=== PATIENT | female | born 1995 | race Caucasian/White ===

== ENCOUNTER → 2017-01-11 | Outpatient (CLI) | payer BC ==
[~2017-01-11] MED LIST: GADOBUTROL 10 MMOL/10 ML (GADAVIST) VIAL IV ONE
--- OUTSIDE RECORDS SUMMARY | 2017-01-11 13:56 | XMS REPORT | Continuity of Care Document ---
Author Author Interface Organization Interface Address Unknown Phone Unavailable Problems Problem Status Onset Date Classification Date Reported Comments Source Anxiety (finding) Active Problem 10/15/2016 [facility]. Chronic headache disorder (disorder) Active Problem 10/15 [facility]. Hypoparathyroidism (disorder) Active Problem 10/15/2016 [facility]. Chronic headache disorder (disorder) Active Problem 12/19 [facility]. Hypoparathyroidism (disorder) Active Problem 12/19/2015 [facility]. Anxiety (finding) Active Problem 10/16/2016 [facility]. Chronic headache disorder (disorder) Active Problem 10/16 [facility]. Hypoparathyroidism (disorder) Active Problem 10/16/2016 [facility]. Anxiety (finding) Active Problem 02/02/2014 [employer]. Chronic headache disorder (disorder) Active Problem 02/02 [employer]. Anxiety (finding) Active Problem 02/17/2014 [facility] Chronic headache disorder (disorder) Active Problem 02/17 [facility] Anxiety (finding) Active Problem 12/19/2015 [facility]. Mixed anxiety and depressive disorder (disorder) Active Problem 12/07/2014 [facility] Tic disorder (disorder) Active Problem 12/07/2014 [facility] Palpitations (finding) 10/11 Diagnosis 10/15/2016 [facility]. Chronic fatigue syndrome (disorder) 12/15/2015 Diagnosis 12/19/2015 [facility]. Cough (finding) 12/15/2015 Diagnosis 12/19/2015 [facility]. Menometrorrhagia (finding) 12/15/2015 Diagnosis 2015 [facility]. Hypoparathyroidism 2014 Diagnosis 02/03/2015 [facility]. Acute sinusitis, unspecified 01/30/2015 Diagnosis 2014 [facility]. Headache 01/27/2015 Diagnosis 01/31/2015 [facility]. Acute pharyngitis 2014 Diagnosis 01/31/2015 [facility]. Alopecia, unspecified 2014 Diagnosis 01/31/2015 [facility]. Hypoparathyroidism 2014 Diagnosis 12/01/2014 [facility]. Vomiting alone 11/05/2014 Diagnosis 11/09/2014 [facility]. Hypopotassemia 11/11/2014 Diagnosis 11/16/2014 [facility]. 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 Abdominal pain, unspecified site 09/19/2014 Diagnosis 02/2014 [facility]. Acute sinusitis, unspecified 02/13/2014 Diagnosis 2013 [facility] Medications Medication Details Route Status Patient Instructions Ordering Provider Order Date Source No Known Medications No known medications Active [facility]. acetaminophen oral 325 mg tablet 650 mg=2 tablet, PO, q4hr, PRN Fever or Mild Pain, greater than 43 kg, Refill(s) 0 </br>greater than 43 kg Active [facility] PROzac 20 mg, daily, Refill(s) 0 [facility] ampicillin 250 mg, PO, daily, Refill(s) 0 [facility] calcitriol 0.5 mcg oral capsule 1 mcg=2 capsule, PO, qDay, # 60 capsule, Refill(s) 2, Pharmacy: [facility] Active [facility] freetext medication *NF* [facility] J-Tip with buffered lidocaine 1% 11/06/14 12:33:00 [employer] , [employer], Routine, 0.2 mL, Intradermal, Injection, Unscheduled, PRN Needle Sticks Active [facility] Xanax 0.25 mg oral tablet 0.25 mg=1 tablet, PO, daily , PRN anxiety, Refill(s) 0 [facility] PriLOSEC OTC PO, daily, Refill(s) 0 [facility] Emoquette Emoquette,=1 tablet, PO, daily [facility] calcium supplement PO, TID, Refill(s) 0 [facility] Allergies, Adverse Reactions, Alerts Substance Category Reaction Severity Reaction type Status Date Reported Comments Source Sulfamethoxazole / Trimethoprim Assertion Drug allergy [facility]. Sertraline Assertion Bleeding Drug allergy [facility]. Sulfamethoxazole / Trimethoprim Assertion Drug allergy [employer]. Sertraline Assertion Bleeding Drug allergy [employer]. Sulfamethoxazole / Trimethoprim Assertion Drug allergy [employer]. Sertraline Assertion Bleeding Drug allergy [facility]. NKA drug allergy Allergy Active [facility] NKA Assertion Drug allergy [facility] sulfamethoxazole-trimethoprim drug allergy Unknown Allergy Active [facility] sertraline drug allergy Unknown Allergy Active [facility] Immunizations Immunization Date Given Site Status Last Updated Comments Source diphtheria/pertussis, acel/tetanus pediatric 1996 diphtheria/pertussis, acel/tetanus pedia<sup>5</sup> [facility] Location History: [facility]. influenza virus vaccine 02/14/2012 influenza virus vaccine<sup>18</sup> [facility] [place] History: [place] [employer] varicella virus vaccine 02/14/2012 varicella virus vaccine<sup>33</sup> [facility] [place] History: [place] [facility] meningococcal conjugate vaccine 02/14/2012 meningococcal conjugate vaccine<sup>25< /sup> [facility] Location History : [place] [employer] meningococcal conjugate vaccine 01/28/2015 meningococcal conjugate vaccine<sup>23< /sup> [facility] Location History : [facility] tetanus-diphtheria toxoids 02/20/2012 tetanus-diphtheria toxoids<sup>30</sup> [facility] [place] History: [place] [facility] influenza virus vaccine 10/18/2008 influenza virus vaccine<sup>20</sup> [facility] Location History: [facility] influenza virus vaccine 09/17/2010 influenza virus vaccine<sup>19</sup> [facility] Location History: [facility] [employer] influenza virus vaccine 09/21/2012 influenza virus vaccine<sup>17</sup> [facility] [place] History: [place] [facility] human papillomavirus vaccine 09/19/2013 human papillomavirus vaccine<sup>15</sup> [facility] Location History: [facility] human papillomavirus vaccine 08/22/2013 human papillomavirus vaccine<sup>16</sup> [facility] Location History: [facility] human papillomavirus vaccine 02/20/2014 human papillomavirus vaccine<sup>14</sup> [facility] Location History: [facility] hepatitis B pediatric vaccine 1997 hepatitis B pediatric/adolescent vaccine< sup>12</sup> [facility] Location History: [facility] [employer] hepatitis B pediatric vaccine 1997 hepatitis B pediatric/adolescent vaccine< sup>13</sup> [facility] Location History: [facility] [employer] hepatitis B pediatric vaccine 11/18/1998 hepatitis B pediatric/adolescent vaccine< sup>10</sup> [facility] Location History: [facility] [employer] hepatitis B pediatric vaccine 10/21/1998 hepatitis B pediatric/adolescent vaccine< sup>11</sup> [facility] Location History: [place] [facility]. measles/mumps/rubella virus vaccine 06/10/1998 measles/mumps/rubella virus vaccine <sup>22</sup> [facility] Location History: [facility] [employer] varicella virus vaccine 06/10/1998 varicella virus vaccine<sup>34</sup> [facility] Location History: [facility] [employer] measles/mumps/rubella virus vaccine 04/02/2002 measles/mumps/rubella virus vaccine <sup>21</sup> [facility] Location History: [facility] haemophilus b conjugate (PRP-T) vaccine 02/07/1998 haemophilus b conjugate (PRP-T ) vaccine<sup>6</sup> [facility] Location History: [facility] haemophilus b conjugate (PRP-T) vaccine 1997 haemophilus b conjugate (PRP-T ) vaccine<sup>7</sup> [facility] Location History: [facility] haemophilus b conjugate (PRP-T) vaccine 1997 haemophilus b conjugate (PRP-T ) vaccine<sup>8</sup> [facility] Location History: [facility] haemophilus b conjugate (PRP-T) vaccine 1997 haemophilus b conjugate (PRP-T ) vaccine<sup>9</sup> [facility] Location History: [facility] poliovirus vaccine, inactivated 04/02/2002 poliovirus vaccine, inactivated<sup>26< /sup> [facility] Location History : [facility] poliovirus vaccine, inactivated 11/18/1998 poliovirus vaccine, inactivated<sup>27< /sup> [facility] Location History : [facility] poliovirus vaccine, inactivated 1997 poliovirus vaccine, inactivated<sup>28< /sup> [facility] Location History : [facility] poliovirus vaccine, inactivated 1997 poliovirus vaccine, inactivated<sup>29< /sup> [facility] Location History : [facility] tetanus/diphth/pertuss (Tdap) adult/adol 02/01/2012 tetanus/diphth/pertuss (Tdap) adult/adol<sup>32</sup> [facility] Location History: [facility] tetanus-diphtheria toxoids 06/04/2008 tetanus-diphtheria toxoids<sup>31</sup> [facility] diphtheria/pertussis, acel/tetanus pediatric 2001 diphtheria/pertussis, acel/tetanus pedia<sup>1</sup> [facility] Location History: [facility] diphtheria/pertussis, acel/tetanus pediatric 1997 diphtheria/pertussis, acel/tetanus pedia<sup>2</sup> [facility] Location History: [facility]. diphtheria/pertussis, acel/tetanus pediatric 1996 diphtheria/pertussis, acel/tetanus pedia<sup>3</sup> [facility] Location History: [facility]. diphtheria/pertussis, acel/tetanus pediatric 1996 diphtheria/pertussis, acel/tetanus pedia<sup>4</sup> [facility] Location History: [facility]. No data available for this section No data available for this section [facility]. No data available for this section No data available for this section [facility]. No data available for this section No data available for this section [facility] varicella virus vaccine 06/10/1998 varicella virus vaccine<sup>34</sup> [facility] Location History: [facility]. measles/mumps/rubella virus vaccine 04/02/2002 measles/mumps/rubella virus vaccine <sup>21</sup> [facility] Location History: [facility]. haemophilus b conjugate (PRP-T) vaccine 02/07/1998 haemophilus b conjugate (PRP-T ) vaccine<sup>6</sup> [facility] Location History: [facility]. haemophilus b conjugate (PRP-T) vaccine 1997 haemophilus b conjugate (PRP-T ) vaccine<sup>7</sup> [facility] Location History: [facility]. haemophilus b conjugate (PRP-T) vaccine 1997 haemophilus b conjugate (PRP-T ) vaccine<sup>8</sup> [facility] Location History: [facility]. haemophilus b conjugate (PRP-T) vaccine 1997 haemophilus b conjugate (PRP-T ) vaccine<sup>9</sup> [facility] Location History: [facility]. poliovirus vaccine, inactivated 04/02/2002 poliovirus vaccine, inactivated<sup>26< /sup> [facility] Location History : [facility]. poliovirus vaccine, inactivated 11/18/1998 poliovirus vaccine, inactivated<sup>27< /sup> [facility] Location History : [facility]. poliovirus vaccine, inactivated 1997 poliovirus vaccine, inactivated<sup>28< /sup> [facility] Location History : [facility]. poliovirus vaccine, inactivated 1997 poliovirus vaccine, inactivated<sup>29< /sup> [facility] Location History : [facility]. tetanus/diphth/pertuss (Tdap) adult/adol 02/01/2012 tetanus/diphth/pertuss (Tdap) adult/adol<sup>32</sup> [facility] Location History: [facility]. tetanus-diphtheria toxoids 06/04/2008 tetanus-diphtheria toxoids<sup>31</sup> [facility] Location History: [employer] diphtheria/pertussis, acel/tetanus pediatric 2001 diphtheria/pertussis, acel/tetanus pedia<sup>1</sup> [facility] Location History: [facility]. diphtheria/pertussis, acel/tetanus pediatric 1997 diphtheria/pertussis, acel/tetanus pedia<sup>2</sup> [facility] Location History: [facility]. diphtheria/pertussis, acel/tetanus pediatric 1996 diphtheria/pertussis, acel/tetanus pedia<sup>3</sup> [facility] Location History: [facility]. diphtheria/pertussis, acel/tetanus pediatric 1996 diphtheria/pertussis, acel/tetanus pedia<sup>4</sup> [facility] Location History: [facility]. diphtheria/pertussis, acel/tetanus pediatric 1996 diphtheria/pertussis, acel/tetanus pedia<sup>5</sup> [facility] Location History: [facility] [employer] influenza virus vaccine 02/14/2012 influenza virus vaccine<sup>18</sup> [facility] Location History: [place] [employer] varicella virus vaccine 02/14/2012 varicella virus vaccine<sup>33</sup> [facility] Location History: [place] [facility] meningococcal conjugate vaccine 02/14/2012 meningococcal conjugate vaccine<sup>25< /sup> [facility] Location History : [place] [employer] meningococcal conjugate vaccine 01/28/2015 meningococcal conjugate vaccine<sup>23< /sup> [facility] Location History : [facility] [employer] tetanus-diphtheria toxoids 02/20/2012 tetanus-diphtheria toxoids<sup>30</sup> [facility] Location History: [place] [employer] influenza virus vaccine 10/18/2008 influenza virus vaccine<sup>20</sup> [facility] Location History: [facility] influenza virus vaccine 09/17/2010 influenza virus vaccine<sup>19</sup> [facility] Location History: [facility] [employer] influenza virus vaccine 09/21/2012 influenza virus vaccine<sup>17</sup> [facility] Location History: [place] [facility] human papillomavirus vaccine 09/19/2013 human papillomavirus vaccine<sup>15</sup> [facility] Location History: [facility]. human papillomavirus vaccine 08/22/2013 human papillomavirus vaccine<sup>16</sup> [facility] Location History: [facility]. human papillomavirus vaccine 02/20/2014 human papillomavirus vaccine<sup>14</sup> [facility] Location History: [facility] hepatitis B pediatric vaccine 1997 hepatitis B pediatric/adolescent vaccine< sup>12</sup> [facility] Location History: [facility] [employer] hepatitis B pediatric vaccine 1997 hepatitis B pediatric/adolescent vaccine< sup>13</sup> [facility] Location History: [facility] [employer] hepatitis B pediatric vaccine 11/18/1998 hepatitis B pediatric/adolescent vaccine< sup>10</sup> [facility] Location History: [facility] [employer] hepatitis B pediatric vaccine 10/21/1998 hepatitis B pediatric/adolescent vaccine< sup>11</sup> [facility] Location History: [place] [employer] measles/mumps/rubella virus vaccine 06/10/1998 measles/mumps/rubella virus vaccine <sup>22</sup> [facility] Location History: [facility]. Immunization - Patient Refused 12/06/2014 completed [facility] Results Order Name Results Value Reference Range Date Interpretation Comments Source Phos Phosphorus 4.2 mg/dL 2.3 - 4.8 11/28/2014 [facility] ESR Sed Rate 7 mm/hr 0 - 19 11/28/2014 [facility] Mg Magnesium 1.6 mg/dL 1.6 - 2.3 11/28/2014 [facility] TTG Algo IgA 80.2 mg/dL 69.0 - 348.0 11/29/2014 [facility] TTG-A R Transglutaminase IgA 3.39 unit(s) 0.00 - 19.99 07/2015 Reference Ranges:< br/> <20 unit=Negative
20-40 unit=Indeterminate
>40 unit= Positive
[facility] ICa Calcium Ionized 1.15 mmol /L 1.13 - 1.37 12/06/2014 [facility] ICa Calcium Ionized Source Blood 12/06/2014 [facility] Mg Magnesium 1.8 mg/dL 1.6 - 2.3 12/06/2014 [facility] Phos Phosphorus 3.8 mg/dL 2.3 - 4.8 12/06/2014 [facility] Prolactin Prolactin 12.5 ng/ mL 0.0 - 17.0 11/28/2014 [facility] CBCD WBC 7.45 x10(3) mcL 4.50 - 11.00 11/28/2014 [facility] CBCD RBC 4.11 x10(6) mcL 4.00 - 5.20 11/28/2014 [facility] CBCD HGB 12.0 gm/dL 12.0 - 16.0 11/28/2014 [facility] CBCD HCT 35.4 % 36.0 - 46.0 11/28/2014 LOW [facility] CBCD MCV 86.1 fL 82.0 - 100.0 11/28/2014 [facility] CBCD MCH 29.2 pg 26.0 - 34.0 11/28/2014 [facility] CBCD MCHC 33.9 gm/dL 31.5 - 36.5 11/28/2014 [facility] CBCD RDW 12.0 % 11.5 - 14.5 11/28/2014 [facility] CBCD Platelet 269 x10(3) mcL 150 - 450 11/28/2014 [facility] CBCD MPV 10.1 fL 8.2 - 12.4 11/28/2014 [facility] Vit D250H Vitamin D 25-OH D2 <5 ng/mL 11/08/2014 [facility] Vit D250H Vitamin D 25-OH D3 40 ng/mL 11/08/2014 [facility] Vit D250H Vitamin D 25-OH D2 D3 (Total) 40 ng/mL 30 - 100 11/08/2014 NA Total 25- Hydroxyvitamin D (D2 +D3) levels between 15-29 ng/mL suggest insufficiency, while levels <15 ng/mL suggest deficiency
This test was developed and its performance characteristics determined
by [facility] laboratories. It has not been cleared or approved by the [place]
Food and Drug Administration. The test does not require FDA approval.
Additional information regarding test use will be provided upon request.
[facility] Vit D250H Vitamin D 25-OH D2 <5 ng/mL 12/04/2014 [facility] Vit D250H Vitamin D 25-OH D3 41 ng/mL 12/04/2014 [facility] Vit D250H Vitamin D 25-OH D2 D3 (Total) 41 ng/mL 30 - 100 12/04/2014 NA Total 25- Hydroxyvitamin D (D2 +D3) levels between 15-29 ng/mL suggest insufficiency, while levels <15 ng/mL suggest deficiency
This test was developed and its performance characteristics determined
by [facility] laboratories. It has not been cleared or approved by the [place]
Food and Drug Administration. The test does not require FDA approval.
Additional information regarding test use will be provided upon request.
[facility]Met Sodium 140 mmol/L 135 - 145 11/09/2014 [facility]Met Potassium 3.9 mmol/L 3.5 - 5.2 11/09/2014 [facility] Chloride 112 mmol/L 99 - 112 11/09/2014 [facility]Met Carbon Dioxide 22 mmol /L 20 - 30 11/09/2014 [facility]Met Anion Gap 6 mmol/L 7 - 14 11/09/2014 LOW [facility] Calcium 10.8 mg/dL 8.6 - 10.5 11/09/2014 [facility] This test has failed a delta check , as defined in the Chemistry Laboratory Policy.
1. Investigate possible clerical error. If found, complete an incident report.
The above investigations were performed by crystal at 11/09/2014 06:11:45 [employer] METHODS CONSULTANT.
[facility] Glucose 119 mg/dL 65 - 110 11/09/2014 [facility]Met BUN 7 mg/dL 5 - 20 11/09/2014 [facility] BasMet Creatinine .71 mg/dL .35 - .84 11/09/2014 [facility] Sodium 138 mmol/L 135 - 145 11/08/2014 [facility] [employer] Protein Total 6.6 gm/ dL 6.5 - 8.3 11/28/2014 [facility]Met Creatinine, Old Calibration 0.9 mg/dL 0.5 - 1.0 NA This creatinine value is a calculated value from the newly implemented IDMS calibration. It represents the value equivalent to what was previously reported by the laboratory.
[facility] Potassium 4.3 mmol/L 3.5 - 5.2 11/08/2014 [facility]Met Chloride 108 mmol/L 99 - 112 11/08/2014 [facility]Met Carbon Dioxide 23 mmol /L 20 - 30 11/08/2014 [facility]Met Sodium 141 mmol/L 135 - 145 11/07/2014 [facility]Met Anion Gap 7 mmol/L 7 - 14 11/08/2014 [facility] [employer] Albumin 3.8 gm/dL 3.0 - 5.1 11/28/2014 [facility]Met Potassium 4.2 mmol/L 3.5 - 5.2 11/07/2014 [facility]Met Calcium 12.9 mg/dL 8.6 - 10.5 11/08/2014 [facility]Met Chloride 110 mmol/L 99 - 112 11/07/2014 [facility]Met Glucose 89 mg/dL 65 - 110 11/08/2014 [facility] [employer] Bilirubin, Total 0.2 mg/dL 0.0 - 1.2 11/28/2014 [facility] Carbon Dioxide 24 mmol /L 20 - 30 11/07/2014 [facility]Met BUN 7 mg/dL 5 - 20 11/08/2014 [facility]Met Anion Gap 7 mmol/L 7 - 14 11/07/2014 [facility] BasMet Creatinine .85 mg/dL .35 - .84 11/08/2014 [facility] BasMet Calcium 13.6 mg/dL 8.6 - 10.5 11/07/2014 [facility] Critical value called to lacho ludwig at 11/07/2014 01:04:19 INDUSTRIAL METHODS CONSULTANT by Request read back.
[facility]Met Glucose 87 mg/dL 65 - 110 11/07/2014 [facility] BasMet Creatinine, Old Calibration 1.0 mg/dL 0.5 - 1.0 NA This creatinine value is a calculated value from the newly implemented IDMS calibration. It represents the value equivalent to what was previously reported by the laboratory.
[facility]Met BUN 10 mg/dL 5 - 20 11/07/2014 [facility] [employer] Bilirubin, Direct 0.2 mg/dL 0.0 - 0.4 11/28/2014 [facility] BasMet Creatinine .82 mg/dL .35 - .84 11/07/2014 [facility] BasMet Creatinine, Old Calibration 1.0 mg/dL 0.5 - 1.0 NA This creatinine value is a calculated value from the newly implemented IDMS calibration. It represents the value equivalent to what was previously reported by the laboratory.
[facility] Bilirubin, Indirect 0.0 mg/dL 0.0 - 1.2 2014 [facility] AST 20 unit/L 12 - 50 11/28/2014 [facility] ALT 20 unit/L 5 - 50 11/28/2014 [facility] Alk Phos 100 unit/L 50 - 130 11/28/2014 [facility] Protein Total 7.1 gm/ dL 6.5 - 8.3 11/06/2014 [facility] Albumin 4.0 gm/dL 3.0 - 5.1 11/06/2014 [facility] Bilirubin, Total 0.3 mg/dL 0.0 - 1.2 11/06/2014 [facility] Bilirubin, Direct 0.3 mg/dL 0.0 - 0.4 11/06/2014 [facility] Bilirubin, Indirect 0.0 mg/dL 0.0 - 1.2 2013 [facility] AST 33 unit/L 12 - 50 11/06/2014 [facility] ALT 17 unit/L 5 - 50 11/06/2014 [facility] Alk Phos 102 unit/L 50 - 130 11/06/2014 [facility] DIFA % Neutro 60.2 % 11/06/2014 [facility] DIFA % Imm Gran 0.1 % 11/06/2014 NA This number represents the sum of the metamyelocytes, myelocytes and promyelocytes.
[facility] DIFA % Lymph 30.5 % 11/06/2014 [facility] DIFA % [place] 8.1 % 11/06/2014 [facility] DIFA % Eos 0.8 % 11/06/2014 [facility] DIFA % Baso 0.3 % 11/06/2014 [facility]Met Sodium 137 mmol/L 135 - 145 11/06/2014 [facility] DIFA Abs Neut 4.46 x10(3) mcL 1.80 - 7.00 11/06/2014 [facility] DIFA Abs Imm Gran 0.01 x10(3 ) mcL 0.00 - 0.04 11/06/2014 [facility] DIFA Abs Lymph 2.26 x10(3) mcL 1.20 - 4.00 11/06/2014 [facility] BasMet Potassium 4.1 mmol/L 3.5 - 5.2 11/06/2014 [facility] DIFA Abs [place] 0.60 x10(3) mcL 0.10 - 0.80 11/06/2014 [facility] BasMet Chloride 104 mmol/L 99 - 112 11/06/2014 [facility] DIFA Abs Eos 0.06 x10(3) mcL 0.00 - 0.50 11/06/2014 [facility]Met Carbon Dioxide 25 mmol /L 20 - 30 11/06/2014 [facility] DIFA Abs Baso 0.02 x10(3) mcL 0.00 - 0.10 11/06/2014 [facility]Met Anion Gap 8 mmol/L 7 - 14 11/06/2014 [facility] DIFA Differential Method Auto Diff 11/06/2014 [facility] BasMet Calcium 14.9 mg/dL 8.6 - 10.5 11/06/2014 [facility] Critical value called to Kale Cortés at 11/06/2014 13:49:36 INDUSTRIAL METHODS CONSULTANT by DONA. Request read back-Yes
[facility] BasMet Glucose 84 mg/dL 65 - 110 11/06/2014 [facility]Met BUN 9 mg/dL 5 - 20 11/06/2014 [facility]Met Creatinine .89 mg/dL .35 - .84 11/06/2014 [facility] BasMet Creatinine, Old Calibration 1.1 mg/dL 0.5 - 1.0 [facility] This creatinine value is a calculated value from the newly implemented IDMS calibration. It represents the value equivalent to what was previously reported by the laboratory.
[facility] BasMet Sodium 142 mmol/L 135 - 145 12/06/2014 [facility]Met Potassium 4.1 mmol/L 3.5 - 5.2 12/06/2014 [facility]Met Sodium 139 mmol/L 135 - 145 11/28/2014 [facility]Met Potassium 4.1 mmol/L 3.5 - 5.2 11/28/2014 [facility]Met Chloride 103 mmol/L 99 - 112 11/28/2014 [facility]Met Carbon Dioxide 25 mmol /L 20 - 30 11/28/2014 [facility]Met Anion Gap 11 mmol/L 7 - 14 11/28/2014 [facility] Calcium 9.0 mg/dL 8.6 - 10.5 11/28/2014 [facility]Met Glucose 90 mg/dL 65 - 110 11/28/2014 [facility] BUN 13 mg/dL 5 - 20 11/28/2014 [facility] Creatinine .84 mg/dL .35 - .84 11/28/2014 [facility]Met Creatinine, Old Calibration 1.0 mg/dL 0.5 - 1.0 NA This creatinine value is a calculated value from the newly implemented IDMS calibration. It represents the value equivalent to what was previously reported by the laboratory.
[facility] DIFA % Neutro 56.2 % 11/28/2014 [facility] DIFA % Imm Gran 0.1 % 11/28/2014 NA This number represents the sum of the metamyelocytes, myelocytes and promyelocytes.
[facility] DIFA % Lymph 35.3 % 11/28/2014 [facility] DIFA % [place] 7.4 % 11/28/2014 [facility]Met Chloride 104 mmol/L 99 - 112 12/06/2014 [facility] DIFA % Eos 0.7 % 11/28/2014 [facility] Carbon Dioxide 24 mmol /L 20 - 30 12/06/2014 [facility] DIFA % Baso 0.3 % 11/28/2014 [facility] Anion Gap 14 mmol/L 7 - 14 12/06/2014 [facility] DIFA Abs Neut 4.19 x10(3) mcL 1.80 - 7.00 11/28/2014 [facility] Calcium 9.5 mg/dL 8.6 - 10.5 12/06/2014 [facility] DIFA Abs Imm Gran 0.01 x10(3 ) mcL 0.00 - 0.04 11/28/2014 [facility]Met Glucose 85 mg/dL 65 - 110 12/06/2014 [facility] DIFA Abs Lymph 2.63 x10(3) mcL 1.20 - 4.00 11/28/2014 [facility] DIFA Abs [place] 0.55 x10(3) mcL 0.10 - 0.80 11/28/2014 [facility] BUN 13 mg/dL 5 - 20 12/06/2014 [facility] DIFA Abs Eos 0.05 x10(3) mcL 0.00 - 0.50 11/28/2014 [facility] Creatinine .83 mg/dL .35 - .84 12/06/2014 [facility] DIFA Abs Baso 0.02 x10(3) mcL 0.00 - 0.10 11/28/2014 [facility]Met Creatinine, Old Calibration 1.0 mg/dL 0.5 - 1.0 NA This creatinine value is a calculated value from the newly implemented IDMS calibration. It represents the value equivalent to what was previously reported by the laboratory.
[facility] DIFA Differential Method Auto Diff 11/28/2014 [facility] IgA Historical IgA Historical No result 11/29/2014 NA Added by [employer]
[facility] UA Micro Volume Ur 5 mL 11/06/2014 [facility] UA Micro Squam Epithelial Ur MODERATE (5-15) /HPF 2013 [facility] UA Micro WBC Ur 1-4 /HPF 1-4 11/06/2014 [facility] UA Micro RBC Ur NONE /HPF 1-4 11/06/2014 [facility] UA Micro Bacteria Ur NONE / HPF NONE 11/06/2014 [facility] UA Micro Casts Ur NONE NONE 11/06/2014 [facility] UA Micro Crystals Ur NONE NONE 11/06/2014 [facility] CBCD WBC 7.41 x10(3) mcL 4.50 - 11.00 11/06/2014 [facility] CBCD RBC 3.89 x10(6) mcL 4.00 - 5.20 11/06/2014 [facility] CBCD HGB 11.5 gm/dL 12.0 - 16.0 11/06/2014 [facility] CBCD HCT 32.9 % 36.0 - 46.0 11/06/2014 [facility] CBCD MCV 84.6 fL 82.0 - 100.0 11/06/2014 [facility] CBCD MCH 29.6 pg 26.0 - 34.0 11/06/2014 [facility] CBCD MCHC 35.0 gm/dL 31.5 - 36.5 11/06/2014 [facility] CBCD RDW 11.8 % 11.5 - 14.5 11/06/2014 [facility] CBCD Platelet 226 x10(3) mcL 150 - 450 11/06/2014 [facility] CBCD MPV 10.4 fL 8.2 - 12.4 11/06/2014 [facility] UAM Color Ur YELLOW 11/06/2014 [facility] UAM Clarity Ur CLEAR 11/06/2014 [facility] UAM Glucose Ur NEGATIVE NEGATIVE 11/06/2014 [facility] UAM Bili Ur NEGATIVE NEGATIVE 11/06/2014 [facility] UAM Ketones Ur NEGATIVE NEGATIVE 11/06/2014 [facility] UAM Specific [place] Ur 1.010 1.005 - 1.035 2013 [facility] UAM pH Ur 6.5 4.6 - 8.0 11/06/2014 [facility] UAM Protein Ur NEGATIVE NEGATIVE 11/06/2014 [facility] UAM Nitrite Ur NEGATIVE NEGATIVE 11/06/2014 [facility] UAM Blood Ur NEGATIVE 11/06/2014 [facility] UAM Leukocytes Ur 1+ NEGATIVE 11/06/2014 [facility] UAM Urobilinogen Ur NORMAL mg /dL 0.2 - 2.0 11/06/2014 [facility] Mg Magnesium 1.3 mg/dL 1.6 - 2.3 11/09/2014 [facility] Phos Phosphorus 2.0 mg/dL 2.3 - 4.8 11/09/2014 [facility] PTH Intact PTH Intact 4.1 pg/ mL 10.0 - 89.0 11/09/2014 [facility] Ca Calcium 11.1 mg/dL 8.6 - 10.5 11/09/2014 [facility] Mg Magnesium 1.3 mg/dL 1.6 - 2.3 11/09/2014 [facility] Ca Calcium 12.8 mg/dL 8.6 - 10.5 11/09/2014 [facility] This test has failed a delta check, as defined in the Chemistry Laboratory Policy.
1. Investigate possible clerical error. If found, complete an incident report.
The above investigations were performed by crystal at 11/09/2014 02:17:14 INDUSTRIAL METHODS CONSULTANT.
[facility] Phos Phosphorus 1.3 mg/dL 2.3 - 4.8 11/09/2014 [facility] Mg Magnesium 1.5 mg/dL 1.6 - 2.3 11/08/2014 [facility] PTH Intact PTH Intact 94.7 pg /mL 10.0 - 89.0 11/08/2014 [facility] PTH Intact PTH Intact 62.8 pg /mL 10.0 - 89.0 11/08/2014 NA [facility] Hem Specimen Integrity See Comment 11/08/2014 NA Slight hemolysis may affect the following test/tests: K, NH3, Total Protein, Troponin-I, CSF Protein and Urine Protein. Interpret results with caution.
[facility] Hem Specimen Integrity See Comment 11/08/2014 NA Slight hemolysis may affect the following test/tests: K, NH3, Total Protein, Troponin-I, CSF Protein and Urine Protein. Interpret results with caution.
[facility] Phos Phosphorus 2.1 mg/dL 2.3 - 4.8 11/08/2014 LOW [facility] PTH Intact PTH Intact 558.0 pg/mL 10.0 - 89.0 11/08/2014 HI [facility] Ca Calcium 10.1 mg/dL 8.6 - 10.5 11/08/2014 NA This test has failed a delta check, as defined in the Chemistry Laboratory Policy.
1. Investigate possible clerical error. If found, complete an incident report.
The above investigations were performed by BSB at 11/08/2014 22:35:13 INDUSTRIAL METHODS CONSULTANT.
[facility] PTH Intact PTH Intact 71.6 pg /mL 10.0 - 89.0 11/08/2014 [facility] Ca Calcium 13.9 mg/dL 8.6 - 10.5 11/08/2014 CRIT Critical value called to Kiya Figueroa at 11/08/2014 13:01:49 INDUSTRIAL METHODS CONSULTANT by hector. Request read back.
[facility] Ca Calcium 10.8 mg/dL 8.6 - 10.5 11/08/2014 [facility] This test has failed a delta check, as defined in the Chemistry Laboratory Policy.
1. Investigate possible clerical error. If found, complete an incident report.
The above investigations were performed by TASHA at 11/08/2014 01:17:36 INDUSTRIAL METHODS CONSULTANT.
[facility] TSH TSH 1.53 mcIU/mL 0.35 - 5.50 11/07/2014 [facility] Ca U Calcium Ur Random 2.7 mg /dL 11/28/2014 [facility] T4 Free T4 Free 0.8 ng/dL 0.8 - 1.9 11/07/2014 [facility] Ca Calcium 13.7 mg/dL 8.6 - 10.5 11/07/2014 CRIT Critical value called to melody jack at 11/07/2014 20:15:59 INDUSTRIAL METHODS CONSULTANT by soo. Request read back.
[facility] Ca Calcium 13.4 mg/dL 8.6 - 10.5 11/08/2014 CRIT Critical value called to Kiya Nichols at 11/08/2014 07:50:46 INDUSTRIAL METHODS CONSULTANT by [facility]. Request read back.
This test has failed a delta check, as defined in the Chemistry Laboratory Policy.
1. Investigate possible clerical error. If found, complete an incident report.<br/ >The above investigations were performed by [facility] at 11/08/2014 07:50:58 INDUSTRIAL METHODS CONSULTANT.<br/ > [facility] Ca Calcium 13.2 mg/dL 8.6 - 10.5 11/07/2014 CRIT Critical value called to Kiya Newton at 11/07/2014 13:42:05 INDUSTRIAL METHODS CONSULTANT by [facility]. Request read back.
[facility] Ca Calcium 13.2 mg/dL 8.6 - 10.5 11/07/2014 CRIT Critical value called to alhaji ludwig at 11/07/2014 06:38:19 INDUSTRIAL METHODS CONSULTANT by elenita. Request read back.
[facility] Mg Magnesium 1.7 mg/dL 1.6 - 2.3 11/06/2014 NA [facility] Ca U Calcium Ur Random 34.7 mg/dL 11/06/2014 NA Specimen verified with 1:2 dilution factor.
[facility] Ca U Calcium/Creatinine Ur Random 0.60 11/06/2014 NA [facility] Ca Calcium 13.9 mg/dL 8.6 - 10.5 11/06/2014 CRIT Critical value called to kiya padilla at 11/06/2014 19:00:34 INDUSTRIAL METHODS CONSULTANT by [facility]. Request read back.
[facility] Creat U Creatinine Ur Random 58.3 mg/dL 11/06/2014 NA [facility] PTH Intact PTH Intact 539.1 pg/mL 10.0 - 89.0 11/06/2014 HI [facility] [place] Test [place] Test Negative 11/06/2014 NA Approximately 50% of children under 4 years of age who have IM may test as IM heterophile antibody negative. EBV specific laboratory diagnosis may be helpful in these cases.
[facility] Phos Phosphorus 2.1 mg/dL 2.3 - 4.8 11/06/2014 LOW [facility] Creat U Creatinine Ur Random 316.4 mg/dL 11/28/2014 [facility] PTH Intact PTH Intact 52.2 pg /mL 10.0 - 89.0 11/28/2014 [facility] Ca U Calcium/Creatinine Ur Random 0.01 11/28/2014 [facility] TSH TSH 1.81 mcIU/mL 0.35 - 5.50 11/28/2014 [facility] IGF1 IGF-1 164 ng/mL 148 - 516 11/28/2014 IGF-1 [place] Stage Reference Ranges
Female
[place] Stage Median Range
I 159 49-342
II 269 115-428
III 412 145-760
IV 504 244-787
V 408 143-859
Male
[place] Stage Median Range
I 152 63-279
II 190 75-420
III 406 94-765<br/ >IV 577 192-861
V 422 171-814
[facility] T4 Free T4 Free 1.0 ng/dL 0.8 - 1.9 11/28/2014 [facility] Lionel Cortisol 9.2 mcg/dL 11/28/2014 Reference Ranges:
AM Collection: 7-25 mcg/ dL
PM Collection: 2-9 mcg/dL
[facility] Vital Signs Vital Sign Value Date Comments Source Heart Rate 84 bpm 11/06/2014 [facility] Respiratory Rate 16 BR/min [facility] Height/Length 164 cm 2013 [facility] Temperature Celsius 36.9 Christina 11/06/2014 [facility] Systolic Blood Pressure Cuff Monitored <content ID=' [id number]'>120</content>/<content ID='[id number]'>95</content> mm[Hg ] 11/06/2014 [facility] Respiratory Rate 20 BR/min [facility] Heart Rate 88 bpm 11/06/2014 [facility] Temperature Route Oral </br>(11/06/2014 11:46:00) <sup> </sup> 11/06/2014 [facility] Heart Rate 100 bpm 2014 [facility] Systolic Blood Pressure Cuff Monitored <content ID=' [id number]'>121</content>/<content ID='[id number]'>70</content> mm[Hg ] 12/06/2014 [facility] Height/Length 164.9 cm 2014 [facility] Current Weight 76 kg 2014 [facility] Respiratory Rate 12 BR/min [facility] Heart Rate 110 bpm 2013 [facility] Systolic Blood Pressure Cuff Monitored <content ID=' [id number]'>136</content>/<content ID='[id number]'>57</content> mm[Hg ] 11/09/2014 [facility] Heart Rate Monitored 67 bpm 11/08/2014 [facility] Current Weight 76.7 kg 2013 [facility] Current Weight 75.7 kg 2013 [facility] Heart Rate Monitored 72 bpm 11/08/2014 [facility] Temperature Route Oral </br>(11/09/2014 01:00:00) <sup> </sup> 11/09/2014 [facility] Temperature Celsius 37.1 Christina 11/09/2014 [facility] Temperature Route Oral </br>(11/09/2014 08:00:00) <sup> </sup> 11/09/2014 [facility] Temperature Celsius 36.9 Christina 11/09/2014 [facility] Heart Rate 86 bpm 11/09/2014 [facility] Respiratory Rate 24 BR/min [facility] Systolic Blood Pressure Cuff Monitored <content ID=' [id number]'>110</content>/<content ID='[id number]'>47</content> mm[Hg ] 11/09/2014 [facility] Height/Length 162 cm 2013 [facility] Current Weight 75.9 kg 2013 [facility] Heart Rate Monitored 75 bpm 11/08/2014 [facility] Systolic Blood Pressure Cuff Monitored <content ID=' [id number]'>105</content>/<content ID='[id number]'>49</content> mm[Hg ] 11/09/2014 [facility] Temperature Celsius 37.0 Christina 11/09/2014 [facility] Respiratory Rate 20 BR/min [facility] Temperature Route Oral </br>(11/09/2014 04:00:00) <sup> </sup> 11/09/2014 [facility] Heart Rate 92 bpm 11/09/2014 [facility] Encounters Location Location Details Encounter Type Encounter Number Reason For Visit Attending Provider ADM Date DC Date Status Source [facility] CD:[id number] Outpatient [id number] Patrick Riojas II 10/12/2016 10/12/2016 Active [facility] [id number] Lee Scott II 10/11/2016 10/12/2016 [facility] CD:[id number] Emergency [id number] Jeremy Neal 09/19/2014 09/19/2014 Active [facility] CD:[id number] Clinic ( Outpatient) [id number] Lee Scott 02/13/2014 Active [facility] CD:[id number] Emergency [id number] Jovani Lundy 11/26/2014 11/26/2014 [facility] [id number] . LAB [facility] 03/03/2015 03/04/2015 [facility], [facility]. [facility] [id number] . LAB [facility] 04/03/2015 04/04/2015 [place] [facility], [facility]. [facility] [id number] . LAB [facility] 04/07/2015 04/08/2015 [facility], [facility]. [facility] [id number] Lee Scott 12/15/2015 12/16/2015 [place] [facility], [facility]. [facility] Cancel/No Show [id number] Lee Scott 03/05/2015 03/04/2015 [place] [facility], [facility]. [facility] [id number] . LAB [facility] 01/28/2015 01/29/2015 [facility], [facility]. [facility] [id number] Lee Scott 01/30/2015 01/31/2015 [facility], [facility]. [facility] [id number] Lee Scott 01/09/2015 01/10/2015 [facility], [facility]. [facility] [id number] Lee Scott 01/27/2015 01/28/2015 [facility] [employer] [facility], [facility]. [facility] [id number] . LAB [facility] 12/16/2014 12/17/2014 [facility], [facility]. [facility] Emergency [id number] Jovani Lundy 11/26/2014 11/28/2014 [facility] [employer] [facility], [facility]. [facility] Outpatient [id number] Lee Scott 11/15/2014 11/16/2014 [facility], [facility]. [facility] [id number] Jesus Beauchamp 11/05/2014 11/06/2014 [facility] [employer], [facility]. [facility] [id number] . LAB [facility] 11/25/2014 11/26/2014 [facility], [facility]. [facility] Outpatient [id number] Lee Scott 11/12/2014 11/13/2014 [facility]. [facility] Emergency [id number] Brett Esaclante 11/11/2014 11/13/2014 [facility] [id number] . LAB [facility] 11/11/2014 11/12/2014 [facility] Cancel/No Show [id number] Mauri Hernandez 11/28/2014 11/27/2014 [facility] CD:[id number] Emergency [id number] Jovani Victor 12/16/2012 12/16/2012 Active [facility] Emergency [id number] Jeremy Neal 09/19/2014 09/21/2014 [facility] CD:[id number] Emergency [id number] Brett Biggsters 11/11/2014 11/11/2014 Active [facility] CD:[id number] Outpatient [id number] Lee Scott 11/12/2014 11/12/2014 Active [facility] CD:[id number] Outpatient [id number] Eligio Santiago 01/29/2014 01/29/2014 Active [facility] CD:[id number] Clinic ( Outpatient) [id number] Patrick Riojas II 10/11/2016 Active [facility] CD:[id number] Clinic ( Outpatient) [id number] Patrick Riojas II 10/11/2016 Active [facility] CD:[id number] Outpatient [id number] Lee Scott 11/15/2014 11/15/2014 Active [facility] [id number] Lee Scott 02/13/2014 02/14/2014 [facility] CD:[id number] Clinic ( Outpatient) [id number] Lee Scott 12/15/2015 Active [facility] CD:[id number] Clinic ( Outpatient) [id number] . [facility] 04/07/2015 Active [facility] CD:[id number] Clinic ( Outpatient) [id number] . [facility] 04/03/2015 Active [facility] CD:[id number] Clinic ( Outpatient) [id number] . LAB [facility] 03/03/2015 Active [facility] CD:[id number] Clinic ( Outpatient) [id number] Lee Lewisdamon 01/30/2015 Active [facility] CD:[id number] Clinic ( Outpatient) [id number] Lee Lewisdamon 01/30/2015 Active [facility] CD:[id number] Clinic ( Outpatient) [id number] . LAB [facility] 01/28/2015 Active [facility] CD:[id number] Clinic ( Outpatient) [id number] Lee Lewisdamon 01/27/2015 Active [facility] CD:[id number] Clinic ( Outpatient) [id number] . LAB [facility] 02/27/2015 Active [facility] CD:[id number] Clinic ( Outpatient) [id number] Lee Lewisdamon 03/05/2015 [employer] [facility] CD:[id number] Clinic ( Outpatient) [id number] Lee Lewisdamon 01/09/2015 [employer] [facility] CD:[id number] Clinic ( Outpatient) [id number] . LAB [facility] 12/16/2014 Active [facility] CD:[id number] Clinic ( Outpatient) [id number] . LAB [facility] 11/25/2014 [employer] [facility] CD:[id number] Clinic ( Outpatient) [id number] . LAB [facility] 11/11/2014 Active [facility] CD:[id number] Clinic ( Outpatient) [id number] Jesus Beauchamp 11/05/2014 Active [facility] CD:[id number] Clinic ( Outpatient) [id number] Mauri Hernandez 11/28/2014 Active [facility] Outpatient [id number] Harsh Woody II 10/12/2016 10/13/2016 [facility] REF [id number] Shira Owens 01/10/20152014 Active [facility] REF [id number] Other Reason Marcio Mckeon 11/28/2014 [facility] CMB CMB CLI [id number] f/u from hospital hyperparathyroidism Cookie Luke DO 12/06/2014 12/06/[address] [facility] [place] [id number] Hypercalcemia Marilin Coles 11/06/2014 [facility] ER [id number] Other - Calcium level Suzette Davidsonchris 11/06/2014 11/06/2014 [facility] Procedures Procedure Code Date Perfomer Comments Source No data available for this section [facility]. Parathyroidectomy or exploration of parathyroid(s); [id number] [employer]
--- NOTE | 2017-01-11 15:32 | Diagnostic Imaging Report ---
PROCEDURE: MR imaging of the brain with and without contrast. TECHNIQUE: Multiplanar, multisequence MR imaging of the brain was performed with and without contrast. INDICATION: Headaches, history of Chiari malformation. COMPARISON: There are no previous studies available for comparison. FINDINGS: By history, the patient has a diagnosis of a Chiari malformation. The sagittal images of this exam do show that the cerebellar tonsils have a pegged appearance and they extend approximately 7.3 mm below the level of the foramen magnum (normal 5 mm or less). This would be consistent with a Chiari malformation. The fourth ventricle is normal in size and there is no evidence for syrinx formation in the visualized proximal cervical cord. There is no intracranial mass, shift of the midline or hemorrhage to indicate an acute abnormality. There is no abnormal signal arising from the brain on the diffusion series to indicate an area of acute ischemia either. Furthermore there is no abnormal enhancement of the postcontrast series to suggest a neoplastic or infectious process. The ventricles are not abnormally dilated. There is no abnormal signal of the periventricular white matter to suggest demyelinating disease. The orbits are symmetrical and within normal limits. The sella is not enlarged and the expected carotid flow voids are evident bilaterally. The sinuses are generally clear. The seventh and eighth nerve complexes are unremarkable. IMPRESSION: 1. There is no Acute intracranial abnormality. There is no sign of a mass nor is there any evidence for demyelinating disease. 2. The cerebellar tonsils are low-lying and have a pegged configuration. This appearance and the position of the tonsils would be consistent with a Chiari malformation. There is no sign of a syrinx in the visualized proximal cervical cord. Dictated by: Dictated on workstation # [id number]
== END ==
LOC: RAD 13:46
PROVIDERS: ATTEND Internal Medicine
DX: G93.5 Compression of brain (principal); R51 Headache
CPT/HCPCS: 70553

== ENCOUNTER 2019-10-08 13:15 | Emergency (ER) | payer BC ==
[~2019-10-08] VITALS: Ht 165 cm; Wt 93.7 kg
[2019-10-08] MEDS ORDERED: ONDANSETRON 4 MG/2 ML (SDV) Z0FRAN IVP STA (13:33)
[2019-10-08] MEDS ORDERED: NS IV 1000 ML 1,000 ML IV STA (13:33)
[2019-10-08 13:46] LABS: BILIRUBIN,URINE NEGATIVE (NEGATIVE); CLARITY,URINE CLEAR; COLOR,URINE YELLOW; GLUCOSE, URINE (UA) NEGATIVE (NEGATIVE); KETONES,URINE NEGATIVE (NEGATIVE); NITRITE,URINE NEGATIVE (NEGATIVE); PH,URINE 6.5 (5-9); PROTEIN,URINE NEGATIVE (NEGATIVE)
[2019-10-08 13:47] LABS: BACTERIA,URINE NEGATIVE /HPF; HCG,QUALITATIVE URINE NEGATIVE (NEGATIVE); LEUKOCYTE ESTERASE ,URINE TRACE (NEGATIVE); SQUAMOUS EPITHELIAL CELL,UR 0-2 /HPF; WBC,URINE 0-2 /HPF
[2019-10-08 14:00] LABS: BASOPHILS # (AUTO) 0.1 10^3/uL (0.0-0.1); BASOPHILS % (AUTO) 1 % (0-10); EOSINOPHILS # (AUTO) 0.1 10^3/uL (0.0-0.3); EOSINOPHILS % (AUTO) 1 % (0-10); HEMATOCRIT 37 % (35-52); HEMOGLOBIN 12.8 G/DL (11.5-16.0); LYMPHOCYTES # (AUTO) 2.7 X 10^3 (1.0-4.0); LYMPHOCYTES % (AUTO) 31 % (12-44); MEAN CORPUSCULAR HEMOGLOBIN 30 PG (25-34); MEAN CORPUSCULAR HGB CONC 34 G/DL (32-36); MEAN CORPUSCULAR VOLUME 88 FL (80-99); MEAN PLATELET VOLUME 9.9 FL (7.4-10.4); MONOCYTES # (AUTO) 0.6 X 10^3 (0.0-1.0); MONOCYTES % (AUTO) 7 % (0-12); NEUTROPHILS # (AUTO) 5.2 X 10^3 (1.8-7.8); NEUTROPHILS % (AUTO) 60 % (42-75); PLATELET COUNT 233 10^3/uL (130-400); RED CELL DISTRIBUTION WIDTH 12.7 % (10.0-14.5); WHITE BLOOD COUNT 8.6 10^3/uL (4.3-11.0)
[2019-10-08 14:11] LABS: BUN/CREATININE RATIO 14; CARBON DIOXIDE 24 MMOL/L (21-32); CHLORIDE 100 MMOL/L (98-107); CREATININE SERUM 0.72 MG/DL (0.60-1.30); GFR ESTIMATED > 60; POTASSIUM 4.2 MMOL/L (3.6-5.0); SODIUM 137 MMOL/L (135-145)
[2019-10-08 14:12] LABS: ALANINE AMINOTRANSFERASE 13 U/L (0-55); ALKALINE PHOSPHATASE 49 U/L (40-136); BILIRUBIN,TOTAL < 0.2 MG/DL (0.1-1.0); GLUCOSE 103 MG/DL (70-105); LIPASE 37 U/L (8-78); TOTAL PROTEIN 6.7 GM/DL (6.4-8.2)
--- NOTE | 2019-10-08 14:51 | ED Abdominal Pain ---
General Chief Complaint: Abdominal/GI Problems Stated Complaint: LRQ PAIN; NAUSEA Nursing Triage Note: about 30 minutes prior to arrival started having sharp RLQ pain that radiated down into groin. Was worse with movement and only lasts for a few seconds at a time. Is rated at 7/10. Sepsis Screen: No Definite Risk Source of Information: Patient History of Present Illness Date Seen by Provider: Oct 08, 2019 Time Seen by Provider: 14:32 Initial Comments 24-year-old female presenting with complaints of right flank and lower quadrant abdominal pain that came on in the 30 minutes prior to arrival in the ED. She was work when this pain started and seemed to be worse with movement. It would only last a few seconds at a time and then with settled down. She was rating the pain 7 out of 10. It was improved by the time she arrived in the emergency department. She denies any pain with urination. She has not had any vaginal bleeding or discharge. She does have a history of irritable bowel and was having increased gas and bowel sounds. She had some mild nausea but no vomiting. She denies any fever or chills. She did not try taking anything for the pain. She reports that she became more because one of the coworkers told her that she needed to come be evaluated for her appendix. Allergies and Home Medications Allergies Coded Allergies: sertraline (Unverified Allergy, Unknown, 01/11/17) sulfamethoxazole (Unverified Allergy, Unknown, 01/11/17) trimethoprim (Unverified Allergy, Unknown, 01/11/17) Patient Home Medication List Home Medication List Reviewed: Yes Review of Systems Review of Systems Constitutional: No chills, No fever EENTM: No Symptoms Reported Respiratory: No Symptoms Reported Cardiovascular: No Symptoms Reported Gastrointestinal: See HPI Genitourinary: See HPI Musculoskeletal: no symptoms reported Skin: no symptoms reported Psychiatric/Neurological: No Symptoms Reported Past Ukpwbwa-Cstgib-Rttfei Hx Past Med/Social Hx: Reviewed Nursing Past Med/Soc Hx Patient Social History Alcohol Use: Denies Use Recreational Drug Use: No 2nd Hand Smoke Exposure: No Recent Foreign Travel: No Contact w/Someone Who Travel: No Recent Infectious Disease Expo: No Recent Hopitalizations: No Physical Abuse: No Sexual Abuse: No Mistreated: No Fear: No Seasonal Allergies Seasonal Allergies: No Past Medical History Surgeries: Yes (hyperparathyroid surgery ) Orthopedic Respiratory: No Cardiac: Yes (v-tach) Neurological: Yes (chiari malformation) Genitourinary: Yes (IBS) Gastrointestinal: No Musculoskeletal: No Endocrine: No HEENT: No Cancer: No Psychosocial: No Integumentary: No Physical Exam Vital Signs Vital Signs - First Documented 10/08/19 13:21 Temp 36.9 Pulse 79 Resp 16 B/P (MAP) 108/65 (79) Pulse Ox 99 Capillary Refill : Less Than 3 Seconds Height/Weight/BMI Height: '" Weight: lbs. oz. kg; 34.00 BMI Method: General Appearance: WD/WN, no apparent distress HEENT: pharynx normal Neck: non-tender, full range of motion, supple, normal inspection Respiratory: chest non-tender, lungs clear, normal breath sounds, no r espiratory distress, no accessory muscle use Cardiovascular: normal peripheral pulses, regular rate, rhythm Gastrointestinal: normal bowel sounds, soft, no pulsatile mass; No guarding, No rebound; tenderness (mild tenderness in the right flank.) Rectal: deferred Extremities: normal range of motion, non-tender, normal capillary refill Back: normal inspection, no CVA tenderness, no vertebral tenderness Neurologic/Psychiatric: track manager II-XII nml as tested, alert, normal mood/affect, oriented x 3 Skin: normal color, warm/dry; No rash Progress/Results/Core Measures Results/Orders Lab Results Laboratory Tests Test 10/08/19 13:20 10/08/19 13:46 Range/Units Urine Color YELLOW Urine Clarity CLEAR Urine pH 6.5 5-9 Urine Specific [place] 1.010 L 1.016-1.022 Urine Protein NEGATIVE NEGATIVE Urine Glucose (UA) NEGATIVE NEGATIVE Urine Ketones NEGATIVE NEGATIVE Urine Nitrite NEGATIVE NEGATIVE Urine Bilirubin NEGATIVE NEGATIVE Urine Urobilinogen 0.2 < = 1.0 MG/DL Urine Leukocyte Esterase TRACE H NEGATIVE Urine RBC (Auto) NEGATIVE NEGATIVE Urine RBC NONE /HPF Urine WBC 0-2 /HPF Urine Squamous Epithelial Cells 0-2 /HPF Urine Crystals NONE /LPF Urine Bacteria NEGATIVE /HPF Urine Casts NONE /LPF Urine Mucus NONE /LPF Urine Culture Indicated NO Urine Test NEGATIVE NEGATIVE White Blood Count 8.6 4.3-11.0 10^3/uL Red Blood Count 4.23 L 4.35-5.85 10^6/uL Hemoglobin 12.8 11.5-16.0 G/DL Hematocrit 37 35-52 % Mean Corpuscular Volume 88 80-99 FL Mean Corpuscular Hemoglobin 30 25-34 PG Mean Corpuscular Hemoglobin Concent 34 32-36 G/DL Red Cell Distribution Width 12.7 10.0-14.5 % Platelet Count 233 130-400 10^3/uL Mean Platelet Volume 9.9 7.4-10.4 FL Neutrophils (%) (Auto) 60 42-75 % Lymphocytes (%) (Auto) 31 12-44 % Monocytes (%) (Auto) 7 0-12 % Eosinophils (%) (Auto) 1 0-10 % Basophils (%) (Auto) 1 0-10 % Neutrophils # (Auto) 5.2 1.8-7.8 X 10^3 Lymphocytes # (Auto) 2.7 1.0-4.0 X 10^3 Monocytes # (Auto) 0.6 0.0-1.0 X 10^3 Eosinophils # (Auto) 0.1 0.0-0.3 10^3/uL Basophils # (Auto) 0.1 0.0-0.1 10^3/uL Sodium Level 137 135-145 MMOL/L Potassium Level 4.2 3.6-5.0 MMOL/L Chloride Level 100 98-107 MMOL/L Carbon Dioxide Level 24 21-32 MMOL/L Anion Gap 13 5-14 MMOL/L Blood Urea Nitrogen 10 7-18 MG/DL Creatinine 0.72 0.60-1.30 MG/DL Estimat Glomerular Filtration Rate > 60 BUN/Creatinine Ratio 14 Glucose Level 103 70-105 MG/DL Calcium Level 9.0 8.5-10.1 MG/DL Corrected Calcium 9.0 8.5-10.1 MG/DL Total Bilirubin < 0.2 0.1-1.0 MG/DL Aspartate Amino Transf (AST/SGOT) 15 5-34 U/L Alanine Aminotransferase (ALT/SGPT) 13 0-55 U/L Alkaline Phosphatase 49 40-136 U/L Total Protein 6.7 6.4-8.2 GM/DL Albumin 4.0 3.2-4.5 GM/DL Lipase 37 8-78 U/L My Orders Orders - PEÑA GARCIA MD Ua Culture If Indicated (10/08/19 13:29) Hcg,Qualitative Urine (10/08/19 13:29) Comprehensive Metabolic Panel (10/08/19 13:33) Lipase (10/08/19 13:33) Ed Iv/Invasive Line Start (10/08/19 13:33) Cbc With Automated Diff (10/08/19 13:33) Ns Iv 1000 Ml (Sodium Chloride 0.9%) (10/08/19 13:33) Ondansetron Injection (Zofran Injectio (10/08/19 13:33) Vital Signs/I&O 10/08/19 10/08/19 13:21 15:04 Temp 36.9 Pulse 79 74 Resp 16 16 B/P (MAP) 108/65 (79) 120/58 Pulse Ox 99 99 10/09/19 00:00 Intake Total 1000 ml Balance 1000 ml Blood Pressure Mean: 79 POS Progress Progress Note #1: Progress Note Obtain basic labs with urinalysis and test. Treat with IV fluid for possible dehydration. Progress Note #2: Progress Note Urinalysis and labs do not show any acute significant abnormality to explain her symptoms. She is not currently . Her urine is not showing signs of a UTI. When reviewing results with the patient she states that her symptoms were improved. She does not have any indication of appendicitis or acute abdomen off of her exam and lab. Counseled about potential of doing a CT scan versus watchful waiting in the next 12-24 hours. Patient opted to wait rather than go through radiation at this time. She was counseled on return precautions if she had worsening symptoms or more issues that arose in the next 12-24 hours. Advised that this could be something more severe and it was just too early to show on testing but at this moment her testing and exam did not demonstrate any acute surgical abdomen or signs of appendicitis. Encourage fluids and rest and to check back through primary provider or surgeon or emergency department if further concerns. Departure Impression Primary Impression: Acute right flank pain Additional Impression: Right lower quadrant abdominal pain Disposition: 01 HOME, SELF-CARE Condition: Stable Departure-Patient Inst. Decision time for Depature: 14:50 Referrals: NO,LOCAL PHYSICIAN (PCP) Primary Care Physician [facility] Patient Instructions: Acute Abdomen (Belly Pain), Adult (DC), Flank Pain (DC) Add. Discharge Instructions: Stay well hydrated and get plenty of rest. If the pain is worsening in the next 12 to 24 hours or you have fever over 101 F then return or seek medical care for further evaluation and imaging. All discharge instructions reviewed with patient and/or family. Voiced understanding. PEÑA GARCIA MD Oct 08, 2019 14:51 POS
[2019-10-08 15:04] VITALS: BP 120/58
== END 2019-10-08 14:56 | disposition home or self-care (01) ==
LOC: EDUNIT# 13:15 → ER FS 13:17
DX: R10.31 Right lower quadrant pain (principal); K58.9 Irritable bowel syndrome, unspecified; Z88.2 Allergy status to sulfonamides; Z88.1 Allergy status to other antibiotic agents; Z88.8 Allergy status to other drugs, medicaments and biological substances
CPT/HCPCS: 36415; 80053; 81000; 83690; 84703; 85025

== ENCOUNTER → 2020-02-05 | Outpatient (CLI) | payer BC ==
--- NOTE | 2020-02-05 10:12 | Diagnostic Imaging Report ---
Right foot at 9:41. Indication: Pain. 3 views were obtained. There are no prior studies available for comparison. There is no fracture, dislocation or acute bony abnormality evident. The Lisfranc joint seems well maintained. The lateral view does show that there are 2 orthopedic fixation screws obliquely coursing through the posterior half the calcaneus. The orthopedic hardware appears to be in good position. The soft tissues are unremarkable. Impression: 1. There is no evidence for any acute bony abnormality. 2. There are postsurgical changes involving the calcaneus. Dictated by: Dictated on workstation # [id number]
== END ==
LOC: RAD FS 09:32
PROVIDERS: ATTEND Nurse Practitioner
DX: M79.671 Pain in right foot (principal)
CPT/HCPCS: 73630